=== PATIENT | female | born 1990 | race Two or more races ===

== ENCOUNTER 2020-12-11 11:52 | Inpatient (IN) | payer MEDICAID, OTHER ==
[~2020-12-11] VITALS: Ht 160 cm; Wt 156.0 kg
[2020-12-11] MEDS ORDERED: ONDANSETRON HCL 4 MG/2 ML VIAL IV ONE (12:30)
[2020-12-11] MEDS ORDERED: MORPHINE SULFATE 4 MG/ML SYR/VIAL IV ONE (12:30)
[2020-12-11] MEDS ORDERED: SODIUM CHLORIDE 0.9% 1,000 ML IV ONE (13:00)
[2020-12-11 13:30] LABS: Basophils # (auto) 0 10 ^3/uL (0-0.2); Basophils % (auto) 0.1 % (0.0-2.0); Eosinophils # (auto) 0 10 ^3/uL (0-0.8); Hemoglobin 8.5 g/dL (12.2-16.2); Lymphocytes # (auto) 1.5 10 ^3/uL (0.4-5.4); Lymphocytes % (auto) 6.7 % (10.0-50.0); Mean Corpuscular Hemoglobin 28.5 pg (28.0-32.0); Mean Corpuscular Hgb Conc. 32.8 g/dL (32.0-36.0); Mean Corpuscular Volume 86.8 fL (80.0-100.0); Monocytes # (auto) 0.8 10 ^3/uL (0-1.3); Monocytes % (auto) 3.4 % (0.0-12.0); Neutrophils # (auto) 20.4 10 ^3/uL (1.6-8.6); Neutrophils % (auto) 89.8 % (37.0-80.0); Red Cell Distribution Width 13.8 % (11.8-14.3); White Blood Cell 22.7 10^3/uL (4.4-10.8)
[2020-12-11 13:48] LABS: Albumin 2.6 g/dL (3.4-5.0); Potassium 4.1 mmol/L (3.5-5.1)
[2020-12-11 13:51] LABS: BUN/Creatinine Ratio 11.4; Bilirubin, Total 0.2 mg/dL (0.2-1.0); Total Protein 6.4 g/dL (6.4-8.2)
[2020-12-11 13:57] LABS: INR 0.98 (0.9-1.15); Partial Thromboplastin Time 23.1 sec (23.0-31.2)
[2020-12-11] MEDS ORDERED: ceFAZolin 1GM/50ML 100 ML IV ONE (15:00)
[2020-12-11] MEDS ORDERED: fentaNYL CITRATE 100 MCG/2 ML VL ONE ×2 (15:18→16:22)
[2020-12-11] MEDS ORDERED: MEPERIDINE HCL (50 MG/ML) 1 ML VIAL ONE (15:19)
[2020-12-11] MEDS ORDERED: MIDAZOLAM HCL 2MG/2ML 2ml VIAL (1mg/ml) ONE (15:19)
[2020-12-11] MEDS ORDERED: SUCCINYLCHOLINE CHLORIDE 20 MG/ML 10ML VIAL IV ONE (15:40)
[2020-12-11] MEDS ORDERED: ETOMIDATE (2MG/ML) 20ML VIAL IV ONE (16:01)
[2020-12-11] MEDS ORDERED: ROCURONIUM 10MG/ML 10ML VIAL IV ONE (16:01)
[2020-12-11] MEDS ORDERED: DexAMETHasone SOD PHOS 10MG/1ML VIAL INJ ONE (16:01)
[2020-12-11] MEDS ORDERED: MORPHINE SULF INJ 2 MG/ML SYRINGE 1ML IV PRN ×2 (17:30→17:45)
[2020-12-11] MEDS ORDERED: NITROGLYCERIN 0.4 MG SL TAB SL PRN (17:30)
[2020-12-11] MEDS: LACTATED RINGER'S 1,000 ML IV SCH ×2 (17:30→20:49)
[2020-12-11] MEDS ORDERED: ONDANSETRON HCL 4 MG/2 ML VIAL IV PRN (17:45)
[2020-12-11] MEDS ORDERED: fentaNYL CITRATE 100 MCG/2 ML VL IV PRN (17:45)
[2020-12-11] MEDS ORDERED: hydrALAZINE HCL 20 MG/ML VL IV PRN (17:45)
[2020-12-11] MEDS ORDERED: MIDAZOLAM HCL 2MG/2ML 2ml VIAL (1mg/ml) IV PRN (17:45)
[2020-12-11] MEDS ORDERED: ePHEDrine SULFATE 50 MG/ML AMP IV PRN (17:45)
[2020-12-11] MEDS ORDERED: LABETALOL HCL 5 MG/ML 4ML SYRINGE IV PRN (17:45)
[2020-12-11] MEDS: HYDROmorphone HCL 2 MG/ML VL IV PRN ×4 (17:50→20:51)
[2020-12-11] MEDS: ceFAZolin 1GM/50ML 50 ML IV SCH (21:26)
[2020-12-11 21:34] VITALS: BP 116/77
[2020-12-11 22:00] VITALS: BP 116/77
[2020-12-11] MEDS: ACETAMINOPHEN IV 100 ML IV SCH (22:27)
[2020-12-11 22:32] LABS: Basophils # (auto) 0 10 ^3/uL (0-0.2); Basophils % (auto) 0.1 % (0.0-2.0); Eosinophils # (auto) 0 10 ^3/uL (0-0.8); Hematocrit 28.6 % (36.0-46.0); Hemoglobin 9.7 g/dL (12.2-16.2); Lymphocytes # (auto) 1.1 10 ^3/uL (0.4-5.4); Lymphocytes % (auto) 6.3 % (10.0-50.0); Mean Corpuscular Hemoglobin 28.9 pg (28.0-32.0); Mean Corpuscular Volume 84.9 fL (80.0-100.0); Monocytes # (auto) 0.7 10 ^3/uL (0-1.3); Monocytes % (auto) 3.8 % (0.0-12.0); Neutrophils # (auto) 15.9 10 ^3/uL (1.6-8.6); Neutrophils % (auto) 89.8 % (37.0-80.0); Red Blood Cells 3.37 10^6/uL (4.0-5.20); Red Cell Distribution Width 13.8 % (11.8-14.3); White Blood Cell 17.7 10^3/uL (4.4-10.8)
[2020-12-12] MEDS: HYDROmorphone HCL 2 MG/ML VL IV PRN ×2 (02:47→08:03)
[2020-12-12 05:00] VITALS: BP 128/62
[2020-12-12] MEDS: ceFAZolin 1GM/50ML 50 ML IV SCH ×3 (05:28→21:29)
[2020-12-12 06:45] LABS: Basophils # (auto) 0 10 ^3/uL (0-0.2); Basophils % (auto) 0.1 % (0.0-2.0); Eosinophils # (auto) 0 10 ^3/uL (0-0.8); Hematocrit 24.9 % (36.0-46.0); Hemoglobin 8.8 g/dL (12.2-16.2); Lymphocytes # (auto) 1.2 10 ^3/uL (0.4-5.4); Lymphocytes % (auto) 7.8 % (10.0-50.0); Mean Corpuscular Hemoglobin 29.7 pg (28.0-32.0); Mean Corpuscular Hgb Conc. 35.3 g/dL (32.0-36.0); Mean Corpuscular Volume 84.3 fL (80.0-100.0); Monocytes # (auto) 0.9 10 ^3/uL (0-1.3); Monocytes % (auto) 5.9 % (0.0-12.0); Neutrophils # (auto) 12.9 10 ^3/uL (1.6-8.6); Neutrophils % (auto) 86.2 % (37.0-80.0); Red Blood Cells 2.95 10^6/uL (4.0-5.20); Red Cell Distribution Width 14.1 % (11.8-14.3)
[2020-12-12] MEDS: LACTATED RINGER'S 1,000 ML IV SCH ×3 (07:10→18:22)
[2020-12-12] MEDS ORDERED: SIMETHICONE 80 MG CHEWABLE TABLET PO PRN (08:30)
[2020-12-12 09:01] VITALS: BP 121/69
[2020-12-12] MEDS: ACETAMINOPHEN IV 100 ML IV SCH (10:00)
[2020-12-12] MEDS: DOCUSATE SOD 100 MG CAP PO SCH ×2 (11:07→20:09)
[2020-12-12 12:00] VITALS: BP 107/66
[2020-12-12] MEDS: HYDROcodone-ACET 5/325MG TAB PO PRN ×2 (16:00→20:10)
[2020-12-12] MEDS: ONDANSETRON HCL 4 MG/2 ML VIAL IV PRN (16:00)
[2020-12-12 16:30] VITALS: BP 106/59
[2020-12-12 22:00] VITALS: BP 115/36
[2020-12-13] MEDS: HYDROcodone-ACET 5/325MG TAB PO PRN ×4 (01:09→21:04)
[2020-12-13 05:00] VITALS: BP 131/66
[2020-12-13] MEDS: ceFAZolin 1GM/50ML 50 ML IV SCH ×3 (05:40→21:09)
[2020-12-13] MEDS: LACTATED RINGER'S 1,000 ML IV SCH ×2 (05:40→14:30)
[2020-12-13] MEDS: DOCUSATE SOD 100 MG CAP PO SCH ×2 (08:37→21:09)
[2020-12-13] MEDS: ONDANSETRON HCL 4 MG/2 ML VIAL IV PRN (08:37)
[2020-12-13 09:00] VITALS: BP 118/57
[2020-12-13 13:02] VITALS: BP 117/51
[2020-12-13 17:05] VITALS: BP 119/56
[2020-12-13 22:00] VITALS: BP 110/57
[2020-12-14] MEDS: LACTATED RINGER'S 1,000 ML IV SCH ×2 (00:30→10:30)
[2020-12-14] MEDS: HYDROcodone-ACET 5/325MG TAB PO PRN ×2 (03:35→08:52)
[2020-12-14 05:00] VITALS: BP 126/72
[2020-12-14] MEDS: ceFAZolin 1GM/50ML 50 ML IV SCH (05:33)
[2020-12-14] MEDS: DOCUSATE SOD 100 MG CAP PO SCH (08:51)
[2020-12-14 09:00] VITALS: BP 143/74
== END 2020-12-14 13:25 | disposition home or self-care (01) | DRG 545 ==
LOC: ER 11:52 → EDBD 11:52 → TELE-WESTW 17:25 → TELE 17:25 → UNDOADMIN 17:25
PROVIDERS: ADMIT Specialist; ATTEND Specialist
PROC: 3E1M38Z Irrigation of Peritoneal Cavity using Irrigating Substance, Percutaneous Approach (ICD-10-PCS; 2020-12-11)
PROC: 0UB60ZZ Excision of Left Fallopian Tube, Open Approach (ICD-10-PCS; 2020-12-11)
PROC: 30233N1 Transfusion of Nonautologous Red Blood Cells into Peripheral Vein, Percutaneous Approach (ICD-10-PCS; 2020-12-11)
PROC: 10T20ZZ Resection of Products of Conception, Ectopic, Open Approach (ICD-10-PCS; principal; 2020-12-11 15:37)
DX: O00.102 Left tubal pregnancy without intrauterine pregnancy (principal); E66.01 Morbid (severe) obesity due to excess calories; I95.9 Hypotension, unspecified; O99.411 Diseases of the circulatory system complicating pregnancy, first trimester; Z20.822 Contact with and (suspected) exposure to COVID-19; O99.211 Obesity complicating pregnancy, first trimester; Z3A.00 Weeks of gestation of pregnancy not specified
CPT/HCPCS: 36415; 76830; 76856; 80053; 84702; 85025; 85610; 85730; 86850; 86900; 86901; 86920; 87426; 96361; 96374; 96375; G0378; J0131; J0330; J0690; J1100; J2250; J2405